=== PATIENT | female | born 1995 | race Caucasian/White ===

== ENCOUNTER 2016-09-03 13:36 | Outpatient (CLI) | payer OTHER ==
[2016-09-03 14:42] LABS: APPEARANCE,URINE CLOUDY; BILIRUBIN,URINE NEGATIVE (NEGATIVE); GLUCOSE, URINE NEGATIVE (NEGATIVE); KETONES,URINE NEGATIVE (NEGATIVE); LEUKOCYTE ESTERASE,URINE TRACE (NEGATIVE); NITRITE,URINE NEGATIVE (NEGATIVE); PROTEIN,URINE 30 mg/dL (NEGATIVE); UROBILINOGEN,URINE NEGATIVE mg/dL (<2.0)
[2016-09-03 14:47] LABS: URINE BARBITURATES SCREEN NEGATIVE; URINE METHADONE SCREEN NEGATIVE; URINE OPIATES LOW NEGATIVE; URINE PHENCYCLIDINE SCREEN NEGATIVE
== END 2016-09-03 15:47 | disposition home or self-care (01) ==
LOC: LC 13:36
PROVIDERS: ATTEND Student in an Organized Health Care Education/Training Program
PROC: 4A1HXCZ Monitoring of Products of Conception, Cardiac Rate, External Approach (ICD-10-PCS; principal; 2016-09-03)
DX: O99.612 Diseases of the digestive system complicating pregnancy, second trimester (principal); K52.9 Noninfective gastroenteritis and colitis, unspecified; O99.282 Endocrine, nutritional and metabolic diseases complicating pregnancy, second trimester; E86.0 Dehydration; Z3A.27 27 weeks gestation of pregnancy
CPT/HCPCS: 80307; 81001

== ENCOUNTER 2016-11-14 10:45 | Outpatient (CLI) | payer OTHER ==
[2016-11-14 11:43] LABS: ABSOLUTE LYMPHOCYTES (AUTO) 1.4 10^3/uL (0.5-4.7); ABSOLUTE MONOCYTES (AUTO) 0.5 10^3/uL (0.1-1.4); ABSOLUTE NEUT (AUTO) 5.9 10^3/uL (1.7-8.2); BASOPHILS % (AUTO) 0.3 % (0-2); EOSINOPHILS % (AUTO) 0.4 % (0-6); HEMATOCRIT 28.7 % (36.0-47.0); HEMOGLOBIN 9.9 g/dL (12.0-15.5); LYMPHOCYTES % (AUTO) 18.2 % (13-45); MEAN CORPUSCULAR HEMOGLOBIN 27.7 pg (27.0-33.4); MEAN CORPUSCULAR HGB CONC 34.5 g/dL (32.0-36.0); MEAN CORPUSCULAR VOLUME 80 fl (80-97); MONOCYTES % (AUTO) 6.9 % (3-13); RED BLOOD COUNT 3.59 10^6/uL (3.72-5.28); RED CELL DISTRIBUTION WIDTH 15.3 % (11.5-14.0); SEGMENTED NEUTROPHILS % (AUTO) 74.2 % (42-78); WHITE BLOOD COUNT 7.9 10^3/uL (4.0-10.5)
[2016-11-14 11:48] LABS: APPEARANCE,URINE CLOUDY; BILIRUBIN,URINE SMALL (NEGATIVE); GLUCOSE, URINE NEGATIVE (NEGATIVE); KETONES,URINE NEGATIVE (NEGATIVE); LEUKOCYTE ESTERASE,URINE SMALL (NEGATIVE); NITRITE,URINE NEGATIVE (NEGATIVE); PROTEIN,URINE 100 mg/dL (NEGATIVE); URINE SPECIFIC GRAVITY 1.035
[2016-11-14 12:06] LABS: URINE BARBITURATES SCREEN NEGATIVE; URINE METHADONE SCREEN NEGATIVE; URINE OPIATES LOW NEGATIVE; URINE PHENCYCLIDINE SCREEN NEGATIVE
[2016-11-14 12:08] LABS: ALANINE AMINOTRANSFERASE 23 U/L (9-52); ALBUMIN 3.4 g/dL (3.5-5.0); ALKALINE PHOSPHATASE 118 U/L (38-126); ANION GAP 11 (5-19); ASPARTATE AMINO TRANSFERASE 15 U/L (14-36); BILIRUBIN,DIRECT 0.3 mg/dL (0.0-0.4); BILIRUBIN,TOTAL 0.3 mg/dL (0.2-1.3); BLOOD UREA NITROGEN 8 mg/dL (7-20); CALCIUM 9.4 mg/dL (8.4-10.2); CARBON DIOXIDE 20 mmol/L (22-30); CHLORIDE 108 mmol/L (98-107); CREATININE RESULT 0.74 mg/dL (0.52-1.25); GLUCOSE 77 mg/dL (75-110); LDH 332 U/L (313-618); POTASSIUM 3.9 mmol/L (3.6-5.0); SODIUM 138.7 mmol/L (137-145); TOTAL PROTEIN 6.2 g/dL (6.3-8.2); URIC ACID 6.1 mg/dL (2.5-6.2)
== END 2016-11-14 12:35 | disposition home or self-care (01) ==
LOC: LC 10:45
PROVIDERS: ATTEND Specialist
PROC: 4A1HXCZ Monitoring of Products of Conception, Cardiac Rate, External Approach (ICD-10-PCS; principal; 2016-11-14)
DX: O16.3 Unspecified maternal hypertension, third trimester (principal); Z3A.38 38 weeks gestation of pregnancy
CPT/HCPCS: 36415; 80053; 80307; 81001; 83615; 84550; 85025

== ENCOUNTER 2016-11-15 16:02 | Outpatient (CLI) | payer OTHER ==
[2016-11-15 17:10] LABS: URINE PROTEIN 33.8 mg/dL (<12)
== END 2016-11-15 16:13 | disposition home or self-care (01) ==
LOC: LC 16:02
PROVIDERS: ATTEND Obstetrics & Gynecology
PROC: 4A1HXCZ Monitoring of Products of Conception, Cardiac Rate, External Approach (ICD-10-PCS; principal; 2016-11-15)
DX: O16.3 Unspecified maternal hypertension, third trimester (principal); Z3A.38 38 weeks gestation of pregnancy
CPT/HCPCS: 59025; 84156

== ENCOUNTER 2016-11-25 12:12 | Outpatient (CLI) | payer OTHER ==
[2016-11-25 13:06] LABS: URINE BARBITURATES SCREEN NEGATIVE; URINE METHADONE SCREEN NEGATIVE; URINE OPIATES LOW NEGATIVE; URINE PHENCYCLIDINE SCREEN NEGATIVE
[2016-11-25 13:09] LABS: URINE PROTEIN 140.1 mg/dL (<12)
[2016-11-25 13:13] LABS: APPEARANCE,URINE CLOUDY; BILIRUBIN,URINE NEGATIVE (NEGATIVE); GLUCOSE, URINE NEGATIVE (NEGATIVE); KETONES,URINE NEGATIVE (NEGATIVE); LEUKOCYTE ESTERASE,URINE NEGATIVE (NEGATIVE); NITRITE,URINE NEGATIVE (NEGATIVE); PROTEIN,URINE 100 mg/dL (NEGATIVE); URINE SPECIFIC GRAVITY 1.029; UROBILINOGEN,URINE NEGATIVE mg/dL (<2.0)
[2016-11-25 13:20] LABS: ABSOLUTE LYMPHOCYTES (AUTO) 1.6 10^3/uL (0.5-4.7); ABSOLUTE MONOCYTES (AUTO) 0.4 10^3/uL (0.1-1.4); ABSOLUTE NEUT (AUTO) 5.3 10^3/uL (1.7-8.2); BASOPHILS % (AUTO) 0.2 % (0-2); EOSINOPHILS % (AUTO) 0.4 % (0-6); HEMATOCRIT 28.2 % (36.0-47.0); HEMOGLOBIN 9.7 g/dL (12.0-15.5); HGB HCT DIFFERENCE 0.9; LYMPHOCYTES % (AUTO) 21.2 % (13-45); MEAN CORPUSCULAR HEMOGLOBIN 27.4 pg (27.0-33.4); MEAN CORPUSCULAR HGB CONC 34.3 g/dL (32.0-36.0); MEAN CORPUSCULAR VOLUME 80 fl (80-97); MONOCYTES % (AUTO) 5.8 % (3-13); RED BLOOD COUNT 3.52 10^6/uL (3.72-5.28); RED CELL DISTRIBUTION WIDTH 15.4 % (11.5-14.0); SEGMENTED NEUTROPHILS % (AUTO) 72.4 % (42-78); WHITE BLOOD COUNT 7.4 10^3/uL (4.0-10.5)
[2016-11-25 13:34] LABS: ALANINE AMINOTRANSFERASE 23 U/L (9-52); ALBUMIN 3.3 g/dL (3.5-5.0); ALKALINE PHOSPHATASE 111 U/L (38-126); ANION GAP 9 (5-19); ASPARTATE AMINO TRANSFERASE 15 U/L (14-36); BILIRUBIN,DIRECT 0.2 mg/dL (0.0-0.4); BILIRUBIN,TOTAL 0.3 mg/dL (0.2-1.3); BLOOD UREA NITROGEN 10 mg/dL (7-20); CALCIUM 9.2 mg/dL (8.4-10.2); CARBON DIOXIDE 20 mmol/L (22-30); CHLORIDE 107 mmol/L (98-107); CREATININE RESULT 0.77 mg/dL (0.52-1.25); GLUCOSE 108 mg/dL (75-110); LDH 332 U/L (313-618); POTASSIUM 4.1 mmol/L (3.6-5.0); SODIUM 135.6 mmol/L (137-145); TOTAL PROTEIN 5.9 g/dL (6.3-8.2); URIC ACID 6.5 mg/dL (2.5-6.2)
--- NOTE | 2016-11-25 13:55 | Non Stress Test Report ---
Non Stress Test Datetime Report Generated by CPN: 11/25/2016 13:55 DEMOGRAPHIC Test Number: 1 EGA NST: 39.4 EGA NST: 38.1 INDICATION Indication for Study: Ordered by Provider Indication for Study: Ordered by Provider Indication for Study (NST) Other: LC MONITORING Monitor Explained: Monitor Explained; Test Explained; Patient Verbalized Understanding Monitor Explained: Monitor Explained; Test Explained; Patient Verbalized Understanding Time on Monitor: 11/25/2016 12:33 Time on Monitor: 11/15/2016 15:44 Time off Monitor: 11/25/2016 13:16 Time off Monitor: 11/15/2016 16:09 NST Duration: 43 NST Duration: 25 NST INTERVENTIONS NST Interventions: PO Hydration NST Interventions: None Physician Notified NST: DrSuzanne Espinal Physician Notified NST: Dr. Espinal BABY A: [id number] BABY A Movement : Present Movement : Present Contraction Frequency : none Contraction Frequency : Occ FHR Baseline : 125 FHR Baseline : 135 Accelerations : 15X15 Accelerations : 15X15 Decelerations : None Decelerations : None Variability : Moderate 6-25bpm Variability : Moderate 6-25bpm NST Review: Meets Criteria for Reactive NST NST Review: Meets Criteria for Reactive NST NST Review and Verified By : Tania Del Rosario RN NST Review and Verified By : Jammie Yarbrough RN (Annotations: Data stored by N on behalf of user) NST Results: Reactive NST Results: Reactive NST REPORT Report Trigger: Send Report
== END 2016-11-25 13:50 | disposition home or self-care (01) ==
LOC: LC 12:12
PROVIDERS: ATTEND Obstetrics & Gynecology
PROC: 4A1HXCZ Monitoring of Products of Conception, Cardiac Rate, External Approach (ICD-10-PCS; principal; 2016-11-25)
DX: O14.93 Unspecified pre-eclampsia, third trimester (principal); Z3A.39 39 weeks gestation of pregnancy
CPT/HCPCS: 36415; 80053; 80307; 81001; 82570; 83615; 84156; 84550; 85025

== ENCOUNTER 2016-11-26 22:04 | Inpatient (IN) | payer OTHER ==
[2016-11-26] MEDS ORDERED: DINOPROSTONE 10 MG VAGINAL INSERT.SR PV PRN (22:18)
[2016-11-26] MEDS ORDERED: RINGERS SOLUTION,LACTATED 300 ML IV ONE (22:30)
[2016-11-26 22:50] LABS: ABSOLUTE LYMPHOCYTES (AUTO) 1.9 10^3/uL (0.5-4.7); ABSOLUTE MONOCYTES (AUTO) 0.7 10^3/uL (0.1-1.4); ABSOLUTE NEUT (AUTO) 7.4 10^3/uL (1.7-8.2); BASOPHILS % (AUTO) 0.4 % (0-2); EOSINOPHILS % (AUTO) 0.4 % (0-6); HEMATOCRIT 26.9 % (36.0-47.0); HEMOGLOBIN 9.3 g/dL (12.0-15.5); LYMPHOCYTES % (AUTO) 18.8 % (13-45); MEAN CORPUSCULAR HEMOGLOBIN 27.6 pg (27.0-33.4); MEAN CORPUSCULAR HGB CONC 34.5 g/dL (32.0-36.0); MEAN CORPUSCULAR VOLUME 80 fl (80-97); MONOCYTES % (AUTO) 6.5 % (3-13); RED BLOOD COUNT 3.37 10^6/uL (3.72-5.28); RED CELL DISTRIBUTION WIDTH 15.5 % (11.5-14.0); SEGMENTED NEUTROPHILS % (AUTO) 73.9 % (42-78); WHITE BLOOD COUNT 10.1 10^3/uL (4.0-10.5)
[2016-11-26 22:52] LABS: APPEARANCE,URINE CLOUDY; BILIRUBIN,URINE NEGATIVE (NEGATIVE); GLUCOSE, URINE NEGATIVE (NEGATIVE); KETONES,URINE TRACE mg/dL (NEGATIVE); LEUKOCYTE ESTERASE,URINE NEGATIVE (NEGATIVE); NITRITE,URINE NEGATIVE (NEGATIVE); PROTEIN,URINE >=500 mg/dL (NEGATIVE); URINE SPECIFIC GRAVITY 1.039
[2016-11-26] MEDS ORDERED: DINOPROSTONE 10 MG VAGINAL INSERT.SR ONE (23:02)
[2016-11-26] MEDS: RINGERS SOLUTION,LACTATED 1,000 ML IV PRN (23:07)
[2016-11-26 23:22] LABS: URINE BARBITURATES SCREEN NEGATIVE; URINE METHADONE SCREEN NEGATIVE; URINE OPIATES LOW NEGATIVE; URINE PHENCYCLIDINE SCREEN NEGATIVE
[2016-11-26] MEDS ORDERED: ZOLPIDEM TARTRATE 5 MG TABLET ONE (23:34)
[2016-11-26] MEDS ORDERED: ZOLPIDEM TARTRATE 5 MG TABLET PO ONE (23:45)
[2016-11-27] MEDS: RINGERS SOLUTION,LACTATED 1,000 ML IV PRN ×2 (05:36→22:25)
[2016-11-27] MEDS ORDERED: GLYBURIDE 2.5 MG TABLET PO ONE (06:00)
[2016-11-27] MEDS ORDERED: GLYBURIDE 5 MG TABLET ONE (06:20)
[2016-11-27] MEDS ORDERED: MISOPROSTOL 0.1 MG TABLET ONE (12:35)
[2016-11-27] MEDS ORDERED: MISOPROSTOL 0.1 MG TABLET PO ONE (12:43)
[2016-11-27] MEDS ORDERED: ONDANSETRON HCL INJ/PF 4 MG/2 ML SDV IV ONE (13:29)
[2016-11-27] MEDS ORDERED: ONDANSETRON HCL INJ/PF 4 MG/2 ML SDV ONE (13:34)
[2016-11-27] MEDS ORDERED: OXYTOCIN/NORMAL SALINE 20 UNIT/1,000 ML RTUINJ ONE ×2 (16:42→21:28)
--- NOTE | 2016-11-27 16:55 | L&D Progress Notes ---
PROGRESS NOTES Datetime Report Generated by CPN: 11/27/2016 16:55 PROGRESS NOTE Procedures: Sterile Vag Exam Plan: Continue Present Management; Induction Informed Consent Obtained: Vaginal Delivery Vital Signs : Reviewed; Within Normal Limits Vital Signs Comments: elevated bp Comment: coping well start pitocin VAGINAL EXAM Dilatation: 3 Effacement: 80 Station: -2 Contractions: irregular MEMBRANES Membranes: Intact FETUS A FHR - Baseline: 135 Monitoring: External US Variability: Moderate 6-25bpm Accelerations: 15X15 Decelerations: None FHR Category: Category I SIGNATURE SIGNATURE: [id number];[id number] SIGNATURE: [id number] Assignment: Wendi Stone MD Signature: with User ID: [email or web address] : with User ID: [email or web address]
[2016-11-27] MEDS ORDERED: BUPIVACAINE HCL 0.25 % INJ/PF (2.5 MG/1 ML) 30 ML VIAL ONE (17:49)
[2016-11-27] MEDS ORDERED: EPHEDRINE SULFATE INJ 50 MG/1 ML AMPULE ONE (17:49)
[2016-11-27] MEDS ORDERED: FENTANYL/BUPIVACAINE/NS/PF 200 MCG/100 ML RTUINJ EPI ONE (17:49)
[2016-11-27] MEDS: GLYBURIDE 2.5 MG TABLET PO SCH (19:41)
[2016-11-27] MEDS ORDERED: MAG HYDROX/AL HYDROX/SIMETH SUSP 30 ML UDCUP ONE (21:07)
[2016-11-27] MEDS ORDERED: LIDOCAINE 1% INJ-PF (10 MG/ML) 30 ML SDV ONE (21:28)
[2016-11-27] MEDS ORDERED: MISOPROSTOL 0.2 MG TABLET ONE (21:28)
--- NOTE | 2016-11-27 22:29 | L&D Progress Notes ---
PROGRESS NOTES Datetime Report Generated by CPN: 11/27/2016 22:29 PROGRESS NOTE Procedures: Artificial ROM; Sterile Vag Exam Plan: Continue Present Management Informed Consent Obtained: Vaginal Delivery Vital Signs : Reviewed Comment: Comfortable with epidural AROM, clear Continue pitocin VAGINAL EXAM Dilatation: 5 Effacement: 80 Station: -1 Contractions: 1-5 MEMBRANES Membranes: Intact Amniotic Fluid Color: Clear FETUS A FHR - Baseline: 120 Monitoring: External US Variability: Moderate 6-25bpm Accelerations: 15X15 Decelerations: None FETUS C SIGNATURE: [id number];[id number] Assignment: Wendi Stone MD Signature: with User ID: [email or web address] : with User ID: Rodake
[2016-11-27 22:41] LABS: ABSOLUTE EOSINOPHILS # (AUTO) 0.1 10^3/uL (0.0-0.6); ABSOLUTE LYMPHOCYTES (AUTO) 2.6 10^3/uL (0.5-4.7); ABSOLUTE MONOCYTES (AUTO) 0.8 10^3/uL (0.1-1.4); ABSOLUTE NEUT (AUTO) 8.8 10^3/uL (1.7-8.2); BASOPHILS % (AUTO) 0.3 % (0-2); EOSINOPHILS % (AUTO) 0.6 % (0-6); HEMATOCRIT 27.7 % (36.0-47.0); HEMOGLOBIN 9.2 g/dL (12.0-15.5); HGB HCT DIFFERENCE -0.1; LYMPHOCYTES % (AUTO) 21.3 % (13-45); MEAN CORPUSCULAR HEMOGLOBIN 26.6 pg (27.0-33.4); MEAN CORPUSCULAR HGB CONC 33.3 g/dL (32.0-36.0); MEAN CORPUSCULAR VOLUME 80 fl (80-97); MONOCYTES % (AUTO) 6.3 % (3-13); RED BLOOD COUNT 3.46 10^6/uL (3.72-5.28); RED CELL DISTRIBUTION WIDTH 15.4 % (11.5-14.0); SEGMENTED NEUTROPHILS % (AUTO) 71.5 % (42-78); WHITE BLOOD COUNT 12.3 10^3/uL (4.0-10.5)
[2016-11-27 22:47] LABS: URINE CREATININE 42.3 mg/dL (16-327)
[2016-11-27 22:57] LABS: ALANINE AMINOTRANSFERASE 21 U/L (9-52); ALBUMIN 3.1 g/dL (3.5-5.0); ALKALINE PHOSPHATASE 117 U/L (38-126); ANION GAP 9 (5-19); ASPARTATE AMINO TRANSFERASE 13 U/L (14-36); BILIRUBIN,DIRECT 0.3 mg/dL (0.0-0.4); BILIRUBIN,TOTAL 0.3 mg/dL (0.2-1.3); BLOOD UREA NITROGEN 10 mg/dL (7-20); CALCIUM 9.1 mg/dL (8.4-10.2); CARBON DIOXIDE 21 mmol/L (22-30); CHLORIDE 108 mmol/L (98-107); CREATININE RESULT 0.72 mg/dL (0.52-1.25); GLUCOSE 74 mg/dL (75-110); LDH 343 U/L (313-618); POTASSIUM 4.2 mmol/L (3.6-5.0); SODIUM 137.9 mmol/L (137-145); TOTAL PROTEIN 5.3 g/dL (6.3-8.2); URIC ACID 5.8 mg/dL (2.5-6.2)
--- NOTE | 2016-11-27 23:55 | L&D Progress Notes ---
PROGRESS NOTES Datetime Report Generated by CPN: 11/27/2016 23:55 PROGRESS NOTE Procedures: Intrauterine Pressure Catheter; Sterile Vag Exam Plan: Continue Present Management Vital Signs : Reviewed Comment: pt coping well, comfortable with epidural IUPC placed without difficulty Dr. Chase updated on pts SVE and fhts Overall moderate variability. Continue present mgmt VAGINAL EXAM Dilatation: 6 Effacement: 80 Station: 0 Contractions: 2-5 MEMBRANES Membranes: Ruptured Amniotic Fluid Color: Clear FETUS A FHR - Baseline: 120 Monitoring: External US Variability: Moderate 6-25bpm Accelerations: 15X15 FHR Category: Category II FHR Comments: iupc placed to better detemine variables vs. earlies vs. lates FETUS C SIGNATURE: [id number];[id number] Assignment: Wendi Stone MD Signature: with User ID: [email or web address] : with User ID: [email or web address]
[2016-11-28] MEDS: RINGERS SOLUTION,LACTATED 1,000 ML IV PRN ×2 (00:06→14:43)
[2016-11-28] MEDS ORDERED: CEFAZOLIN 2 GM/D5W RTU 2 GM/50 ML RTUPB IV ONE (02:00)
[2016-11-28] MEDS ORDERED: CITRIC ACID/SODIUM CITRATE ORAL SOLN 15 ML UDCUP ONE (02:00)
[2016-11-28] MEDS ORDERED: LIDOCAINE 2% INJ-PF (20 MG/ML) 10 ML AMPUL ONE (02:06)
[2016-11-28] MEDS ORDERED: OXYTOCIN 10 UNIT/ML VIAL ONE (02:21)
[2016-11-28] MEDS ORDERED: ONDANSETRON HCL INJ/PF 4 MG/2 ML SDV ONE (02:21)
[2016-11-28] MEDS ORDERED: OXYTOCIN/NORMAL SALINE 0 UNIT/0 ML RTUINJ ONE (02:21)
[2016-11-28] MEDS ORDERED: MIDAZOLAM 2 MG/2 ML INJ ONE ×2 (02:44→03:01)
[2016-11-28] MEDS ORDERED: KETAMINE HCL INJ 500 MG/10 ML VIAL ONE (02:55)
[2016-11-28] MEDS ORDERED: CHLOROPROCAINE HCL INJ/PF 3% (30 MG/1 ML) 20 ML VIAL ONE (02:56)
[2016-11-28] MEDS ORDERED: FENTANYL CITRATE INJ/PF 100 MCG/2 ML AMPUL ONE ×2 (03:01→03:38)
[2016-11-28] MEDS ORDERED: DIPH/PERTUSS(ACELL)/TETANUS VAC/PF 0.5 ML SYR (>=10YO) IM PRN (03:26)
[2016-11-28] MEDS ORDERED: MORPHINE SULFATE 10 MG/ML INJ IV PRN ×2 (03:26→03:50)
[2016-11-28] MEDS ORDERED: ACETAMINOPHEN 100 ML IV PRN (03:26)
[2016-11-28] MEDS ORDERED: OXYTOCIN/NORMAL SALINE 20 UNIT/1,000 ML RTUINJ IV PRN (03:26)
[2016-11-28] MEDS ORDERED: SIMETHICONE 80 MG TAB.CHEW PO PRN (03:26)
[2016-11-28] MEDS ORDERED: OXYCODONE-ACETAMINOPHEN 5-325 MG TABLET PO PRN (03:26)
[2016-11-28] MEDS ORDERED: MEASLES,MUMPS&RUBELLA VACC/PF 0.5 ML VIAL SUBCUT PRN (03:26)
[2016-11-28] MEDS ORDERED: ACETAMINOPHEN 100 ML IV ONE (03:35)
[2016-11-28] MEDS ORDERED: ONDANSETRON HCL INJ/PF 4 MG/2 ML SDV IV PRN (03:50)
[2016-11-28] MEDS ORDERED: DIPHENHYDRAMINE HCL 50 MG/ML VIAL IV PRN (03:50)
[2016-11-28] MEDS ORDERED: FENTANYL CITRATE INJ/PF 100 MCG/2 ML AMPUL IV PRN ×2 (03:50)
[2016-11-28] MEDS ORDERED: KETOROLAC TROMETHAMINE INJ/PF 30 MG/1 ML SDV IV ONE (04:08)
[2016-11-28] MEDS ORDERED: KETOROLAC TROMETHAMINE INJ/PF 30 MG/1 ML SDV ONE (04:19)
[2016-11-28] MEDS ORDERED: LABETALOL HCL INJ 20 MG/4 ML DISP.SYRIN IV ONE ×2 (04:24→04:28)
--- NOTE | 2016-11-28 05:12 | OPERATIVE REPORT E ---
Operative Report NAME: BEATA LUGO : 1995 AGE: 21Y DATE OF SURGERY: 11/28/2016 ROOM: LR200 PREOPERATIVE DIAGNOSIS: Intrauterine at 39+ weeks, A2 diabetic failed induction for nonreassuring heart tones. POSTOPERATIVE DIAGNOSIS: Intrauterine at 39+ weeks, A2 diabetic failed induction for nonreassuring heart tones. PROCEDURE: Low transverse hysterotomy section. SURGEON: NEL PAREDES M.D. ANESTHESIA: Dr. Liriano with an epidural. FINDINGS: A male in cephalic presentation with Apgars of 8 and 9. Tight nuchal with the umbilical cord around the baby's neck and shoulders. ESTIMATED BLOOD LOSS: 600 mL. SPECIMENS REMOVED: None. PROCEDURE IN DETAIL: Patient was taken to the operating room, prepared and draped in a normal sterile fashion in a supine position with a leftward tilt. A transverse skin incision was made with a scalpel and carried through to the underlying layer of fascia with the same scalpel. The fascia was excised in the midline and extended laterally with Mayos. The fascia was then dissected from the rectus muscle sharply with a Bovie, and the rectus muscle was divided. Peritoneal cavity was entered bluntly with surgeon finger fracture. The bladder blade was inserted, and the hysterotomy was nicked with a scalpel and extended laterally with surgeon finger fracture. The infant was then delivered atraumatically with the assist of a Kiwi vacuum x1 application with no pop-off. The nose and mouth were suctioned with a suction bulb, the cord was clamped and cut, and the infant was handed off to waiting pediatricians. The cord blood was collected, and the placenta was removed manually. The uterus was exteriorized and cleared of clot and debris. The 0 Monocryl was used in a running locked fashion to close the hysterotomy. A second layer was used in an imbricating fashion to ensure hemostasis. The uterus was returned to the abdomen, and the hysterotomy was reinspected and found to be hemostatic. The peritoneal cavity was cleared of clots and debris. The rectus muscle and peritoneum were reapproximated with a mattress stitch of 2-0 chromic. The fascia was closed with 0 Vicryl. The subcutaneous layer was closed with plain cat gut, and the skin was closed with 4-0 Vicryl. The patient tolerated procedure well. Sponge, lap, and needle counts were correct x2. The patient was taken to recovery in stable condition. DICTATING PHYSICIAN: NEL PAREDES M.D. [id number] PHY#: [id number] ID: [id number] JOB#: [id number] ACCT: [id number] cc:NEL PAREDES M.D. >
[2016-11-28] MEDS: FENTANYL CITRATE INJ/PF 100 MCG/2 ML AMPUL IV PRN ×2 (05:17→05:19)
--- NOTE | 2016-11-28 05:39 | Admission Physical ---
Datetime Report Generated by CPN: 11/28/2016 05:39 CURRENT ADMISSION Hx Assessment: The History has been Reviewed and is Current Chief Complaint: Scheduled Induction of Labor Indication for Induction- Other: GDMA2 Admit Plan: Initiate Labor Induction Protocol ALLERGIES Medication Allergies: No Medication Allergies: No Known Allergies (11/14/2016) Medication Allergies: No Known Allergies (09/03/2016) Latex: No Latex Allergies Food Allergies: N/A Environmental Allergies: N/A OBSTETRICAL HISTORY EDC: 11/28/2016 00:00 : 1 Para: 0 Term: 0 : 0 SAB: 0 IAB: 0 Ectopic: 0 Livin Cesareans: 0 VBACs: 0 Multiple Births: 0 Gestational Diabetes: Yes Rh Sensitization: No Incompetent Cervix: No HOA: No Infertility: No ART Treatment: No Uterine Anomaly: No IUGR: No Hx Previous C/S: No Macrosomia: No Hx Loss/Stillborn: No PIH: No Hx : No Placenta Previa/Abruption: No Depression/PP Depression: No PTL/PROM: No Post Hemorrhage: No Current Procedures: Ultrasound Obstetrical History Comments: G1 - current SEE RECORDS Alcohol: No Marijuana : No Cocaine: No Other Illicit Drugs: No Cigarettes: Never Smoker. [id number] MEDICAL HISTORY Diabetes: Yes Diabetes Type: Gestational Diabetes Blood Transfusion: No Pulmonary Disease (Asthma, TB): No Breast Disease: No Hypertension: No Schedule Maker Surgery: No Heart Disease: No Hosp/Surgery: No Autoimmune Disorder: No Anesthetic Complications: No Kidney Disease: No Abnormal Pap Smear: No Neuro/Epilepsy: No Psychiatric Disorders: No Other Medical Diseases: No Hepatitis/Liver Disease: No Significant Family History: No Varicosities/Phlebitis: No Trauma/Violence : No Thyroid Dysfunction: No INFECTIOUS HISTORY Gonorrhea: No Genital Herpes: No Chlamydia: No Tuberculosis: No Syphilis: No Hepatitis: No HIV/AIDS Exposure: No Rash or Viral Illness: No HPV: No PHYSICAL EXAM General: Normal HEENT: Normal Neurologic: Normal Thyroid: Normal Heart: Normal Lungs: Normal Breast: Normal Back: Normal Abdomen: Normal Genitourinary Exam: Normal Extremities: Normal DTRs: Normal Pelvic Type: Adequate Physical Exam Comments: efw 7 pounds 4 oz on recent sono VAGINAL EXAM Dilatation: 6 Dilatation: 5 Dilatation: 3 Effacement: 80 Effacement: 80 Effacement: 80 Station: 0 Station: -1 Station: -2 Contraction Comments: 2-5 Contraction Comments: 1-5 Contraction Comments: irregular MEMBRANES Membranes: Ruptured Membranes: Intact Membranes: Intact Amniotic Fluid Color: Clear Amniotic Fluid Color: Clear FETUS A EGA: 39.5 Monitoring: External US FHR Category: Category I Admit Comment: cervidil induction, follow fs. glyburide 2.5 mg po in am if eating breakfast PLANS FOR LABOR AND DELIVERY Labor and Delivery: None Pain Management: Epidural Feeding Preference: Breast Benefit of Breast Feed Discussed: Yes Circumcision: Yes INFORMED CONSENT Informed Consent Obtained: Vaginal Delivery Informed Consent Obtained: Vaginal Delivery Signature: with User ID: [email or web address]
[2016-11-28] MEDS ORDERED: KETOROLAC TROMETHAMINE INJ/PF 30 MG/1 ML SDV IV SCH (06:00)
[2016-11-28] MEDS: LABETALOL HCL 200 MG TABLET PO SCH ×2 (09:26→20:36)
[2016-11-28] MEDS: DOCUSATE SODIUM 100 MG CAPSULE PO SCH ×2 (09:29→18:50)
[2016-11-28] MEDS: KETOROLAC TROMETHAMINE INJ/PF 30 MG/1 ML SDV IV SCH ×2 (09:30→18:51)
[2016-11-28] MEDS: PRENATAL VITAMIN W-O CA NO5/FE FUMARATE/FA CAPSULE PO SCH (09:30)
[2016-11-28] MEDS: GLYBURIDE 2.5 MG TABLET PO SCH (09:54)
--- NOTE | 2016-11-28 10:05 | PDOC PROGRESS REPORT ---
Subjective-OB Subjective: Post Delivery Day: 21 year old. Denies any needs at this time Doing better, ready to start getting up, feels gas, plans to breast feed, pain under control, family at BS Physical Exam (OB) Vital Signs: Temp Pulse Resp BP Pulse Ox 98.7 F 101 H 21 H 136/83 H 97 11/28/16 07:43 11/28/16 07:43 11/28/16 07:43 11/28/16 07:43 11/28/16 07:43 Intake & Output 11/27/16 11/28/16 11/29/16 06:59 06:59 06:59 Weight 85.1 kg - PIH/Pre-Eclampsia DTR's: 2 + Clonus: Negative Headache: Absent Epigastric Pain: No Visual Changes: Yes - patient states that blurry vision when looking to the right side. - Abdomen Description: Tender, Soft Hernia Present: No Fundal Description: Firm, Midline Fundal Height: u/u - u/2 Objective-Diagnostic Laboratory: 11/27/16 22:28 11/27/16 22:28 11/27/16 11/27/16 22:28 22:28 WBC 12.3 H RBC 3.46 L Hgb 9.2 L Hct 27.7 L MCV 80 MCH 26.6 L MCHC 33.3 RDW 15.4 H Plt Count 212 Seg Neutrophils % 71.5 Lymphocytes % 21.3 Monocytes % 6.3 Eosinophils % 0.6 Basophils % 0.3 Absolute Neutrophils 8.8 H Absolute Lymphocytes 2.6 Absolute Monocytes 0.8 Absolute Eosinophils 0.1 Absolute Basophils 0.0 Sodium 137.9 Potassium 4.2 Chloride 108 H Carbon Dioxide 21 L Anion Gap 9 BUN 10 Creatinine 0.72 Est GFR ( Amer) > 60 Est GFR (Non-Af Amer) > 60 Glucose 74 L Uric Acid 5.8 Calcium 9.1 Total Bilirubin 0.3 AST 13 L ALT 21 Alkaline Phosphatase 117 Total Protein 5.3 L Albumin 3.1 L Assessment and Plan(PN) - Assessment and Plan (1) Gestational diabetes mellitus Qualifiers: Gestational diabetes mellitus control: diet-controlled Is this a current diagnosis for this admission?: Yes (2) Anemia Qualifiers: Anemia type: iron deficiency Is this a current diagnosis for this admission?: Yes (3) Delivery by emergency caesarean section Is this a current diagnosis for this admission?: Yes - Time Spent with Patient Time with patient: Less than 15 minutes Medications reviewed and adjusted accordingly: Yes - Disposition Anticipated Discharge: Home Within: within 48 hours
[2016-11-28] MEDS: PROMETHAZINE HCL INJ 25 MG/1 ML VIAL IV PRN ×2 (11:52→20:35)
[2016-11-28] MEDS: OXYCODONE-ACETAMINOPHEN 5-325 MG TABLET PO PRN (15:35)
[2016-11-28] MEDS ORDERED: GLYBURIDE 2.5 MG TABLET PO SCH (16:00)
--- NOTE | 2016-11-28 16:06 | PDOC PROGRESS REPORT ---
<[address] - Last Filed: 11/28/16 16:02> Subjective-OB Subjective: Post Delivery Day: 21 year old. Denies any needs at this time Physical Exam (OB) Vital Signs: Temp Pulse Resp BP Pulse Ox 98.7 F 100 16 146/83 H 97 11/28/16 11:42 11/28/16 11:42 11/28/16 11:42 11/28/16 11:42 11/28/16 11:42 Intake & Output 11/27/16 11/28/16 11/29/16 06:59 06:59 06:59 Intake Total 240 Output Total 150 Balance 90 Weight 85.1 kg - PIH/Pre-Eclampsia DTR's: 2 + Clonus: Negative Headache: Absent Epigastric Pain: No Visual Changes: Yes - patient states that blurry vision when looking to the right side. - Incision: Dressing, Well Approximated - Lochia Lochia Amount: Scant < 10 ml Lochia Color: Rubra/Red - Abdomen Description: Tender, Soft Hernia Present: No Fundal Description: Firm, Midline Fundal Height: u/u - u/2 Objective-Diagnostic Laboratory: 11/27/16 22:28 11/27/16 22:28 11/27/16 11/27/16 22:28 22:28 WBC 12.3 H RBC 3.46 L Hgb 9.2 L Hct 27.7 L MCV 80 MCH 26.6 L MCHC 33.3 RDW 15.4 H Plt Count 212 Seg Neutrophils % 71.5 Lymphocytes % 21.3 Monocytes % 6.3 Eosinophils % 0.6 Basophils % 0.3 Absolute Neutrophils 8.8 H Absolute Lymphocytes 2.6 Absolute Monocytes 0.8 Absolute Eosinophils 0.1 Absolute Basophils 0.0 Sodium 137.9 Potassium 4.2 Chloride 108 H Carbon Dioxide 21 L Anion Gap 9 BUN 10 Creatinine 0.72 Est GFR ( Amer) > 60 Est GFR (Non-Af Amer) > 60 Glucose 74 L Uric Acid 5.8 Calcium 9.1 Total Bilirubin 0.3 AST 13 L ALT 21 Alkaline Phosphatase 117 Total Protein 5.3 L Albumin 3.1 L Assessment and Plan(PN) - Assessment and Plan (1) Gestational diabetes mellitus QualifierTitle: Gestational diabetes mellitus control: diet-controlled Is this a current diagnosis for this admission?: Yes (2) Anemia QualifierTitle: Anemia type: iron deficiency Is this a current diagnosis for this admission?: Yes (3) Delivery by emergency caesarean section Is this a current diagnosis for this admission?: Yes - Time Spent with Patient Medications reviewed and adjusted accordingly: Yes - Disposition Anticipated Discharge: Home Within: Other - walked in to check patient and she was pale, SOB, chest pain and pulse ox 80, BP slightly elevated O2 via mask, stat xray, stat EKG and Dr. Love notified, diaphoretic Dr. Love notified Hospitalists to come check patient, urine output 300cc since 7 AM order for Lasix 40 IV per hospitalist <DARNELL LOVE - Last Filed: 11/28/16 16:43> Subjective-OB Subjective: Post Delivery Day: 21 year old. Denies any needs at this time Physical Exam (OB) Vital Signs: Temp Pulse Resp BP Pulse Ox 98.7 F 100 16 146/83 H 97 11/28/16 11:42 11/28/16 11:42 11/28/16 11:42 11/28/16 11:42 11/28/16 11:42 Intake & Output 11/27/16 11/28/16 11/29/16 06:59 06:59 06:59 Intake Total 240 Output Total 150 Balance 90 Weight 85.1 kg Objective-Diagnostic Laboratory: 11/27/16 22:28 11/27/16 22:28 11/27/16 11/27/16 22:28 22:28 WBC 12.3 H RBC 3.46 L Hgb 9.2 L Hct 27.7 L MCV 80 MCH 26.6 L MCHC 33.3 RDW 15.4 H Plt Count 212 Seg Neutrophils % 71.5 Lymphocytes % 21.3 Monocytes % 6.3 Eosinophils % 0.6 Basophils % 0.3 Absolute Neutrophils 8.8 H Absolute Lymphocytes 2.6 Absolute Monocytes 0.8 Absolute Eosinophils 0.1 Absolute Basophils 0.0 Sodium 137.9 Potassium 4.2 Chloride 108 H Carbon Dioxide 21 L Anion Gap 9 BUN 10 Creatinine 0.72 Est GFR ( Amer) > 60 Est GFR (Non-Af Amer) > 60 Glucose 74 L Uric Acid 5.8 Calcium 9.1 Total Bilirubin 0.3 AST 13 L ALT 21 Alkaline Phosphatase 117 Total Protein 5.3 L Albumin 3.1 L Assessment and Plan(PN) - Assessment and Plan (1) Hypoxia Is this a current diagnosis for this admission?: Yes Plan: Called hospitalist. Pt with SOB and Decreased O2, tachy, sats and CP. Less than 24 hrs postop from c/s. Concern for Pulmonary edema vs PE vs other cause. NO fever. Hospitalist requested urgently for help with management. Very much appreciate Dr. Oneal
[2016-11-28] MEDS ORDERED: FUROSEMIDE INJ/PF 40 MG/4 ML SDV IV ONE (16:15)
--- NOTE | 2016-11-28 16:37 | RADIOLOGY REPORT (SQ) ---
EXAM DESCRIPTION: CHEST SINGLE VIEW COMPLETED DATE/TIME: 11/28/2016 4:15 pm REASON FOR STUDY: SOB/chest pain COMPARISON: None. EXAM PARAMETERS: NUMBER OF VIEWS: One view. TECHNIQUE: Single frontal radiographic view of the chest acquired. RADIATION DOSE: NA LIMITATIONS: None. FINDINGS: LUNGS AND PLEURA: Patchy infiltrate is seen in the LLL. Lungs otherwise expanded and soraida r. MEDIASTINUM AND HILAR STRUCTURES: No masses. Contour normal. HEART AND VASCULAR STRUCTURES: Heart normal in size. Normal vasculature. BONES: No acute findings. HARDWARE: None in the chest. OTHER: No other significant finding. IMPRESSION: Patchy infiltrate LLL. TECHNICAL DOCUMENTATION: JOB ID: [id number]
[2016-11-28] MEDS ORDERED: GLUCAGON,HUMAN RECOMB 1 MG INJ IM PRN (17:00)
[2016-11-28] MEDS ORDERED: DEXTROSE 50%-WATER 25 GM/50 ML DISP.SYRIN IV PRN ×2 (17:00)
[2016-11-28] MEDS ORDERED: INSULIN LISPRO 100 UNIT/ML 3 ML VIAL SUBCUT PRN (17:00)
[2016-11-28] MEDS ORDERED: DEXTROSE 40% GEL 15 GM TUBE PO PRN ×2 (17:00)
[2016-11-28 17:26] LABS: ABSOLUTE LYMPHOCYTES (AUTO) 1.1 10^3/uL (0.5-4.7); ABSOLUTE MONOCYTES (AUTO) 0.5 10^3/uL (0.1-1.4); ABSOLUTE NEUT (AUTO) 11.9 10^3/uL (1.7-8.2); BASOPHILS % (AUTO) 0.3 % (0-2); EOSINOPHILS % (AUTO) 0.1 % (0-6); HEMATOCRIT 23.9 % (36.0-47.0); HEMOGLOBIN 8.3 g/dL (12.0-15.5); LYMPHOCYTES % (AUTO) 8.4 % (13-45); MEAN CORPUSCULAR HEMOGLOBIN 27.4 pg (27.0-33.4); MEAN CORPUSCULAR HGB CONC 34.7 g/dL (32.0-36.0); MEAN CORPUSCULAR VOLUME 79 fl (80-97); MONOCYTES % (AUTO) 3.9 % (3-13); RED BLOOD COUNT 3.02 10^6/uL (3.72-5.28); RED CELL DISTRIBUTION WIDTH 15.6 % (11.5-14.0); SEGMENTED NEUTROPHILS % (AUTO) 87.3 % (42-78); WHITE BLOOD COUNT 13.7 10^3/uL (4.0-10.5)
[2016-11-28] MEDS ORDERED: MAGNESIUM SULFATE 1 GM/D5W 100 ML IV SCH ×2 (17:30→19:00)
[2016-11-28] MEDS ORDERED: MAGNESIUM SULFATE 4 GM/D5W 100 ML IV ONE ×3 (17:45→18:30)
[2016-11-28 17:47] LABS: ALANINE AMINOTRANSFERASE 25 U/L (9-52); ALBUMIN 2.4 g/dL (3.5-5.0); ALKALINE PHOSPHATASE 89 U/L (38-126); ANION GAP 6 (5-19); ASPARTATE AMINO TRANSFERASE 20 U/L (14-36); BILIRUBIN,DIRECT 0.2 mg/dL (0.0-0.4); BILIRUBIN,TOTAL 0.3 mg/dL (0.2-1.3); BLOOD UREA NITROGEN 12 mg/dL (7-20); CALCIUM 8.4 mg/dL (8.4-10.2); CARBON DIOXIDE 22 mmol/L (22-30); CHLORIDE 107 mmol/L (98-107); CREATININE RESULT 0.88 mg/dL (0.52-1.25); GLUCOSE 81 mg/dL (75-110); LDH 665 U/L (313-618); POTASSIUM 4.3 mmol/L (3.6-5.0); SODIUM 134.6 mmol/L (137-145); TOTAL PROTEIN 4.4 g/dL (6.3-8.2); URIC ACID 5.9 mg/dL (2.5-6.2)
--- NOTE | 2016-11-28 18:05 | RADIOLOGY REPORT (SQ) ---
EXAM DESCRIPTION: CTA CHEST COMPLETED DATE/TIME: 11/28/2016 5:46 pm REASON FOR STUDY: hypoxia, possible pe COMPARISON: Chest radiograph from 11/28/2016. TECHNIQUE: CT scan of the chest performed using helical scanning technique with dynamic intravenous contrast injection. Images reviewed with lung, soft tissue and bone windows. Reconstructed coronal and sagittal MPR images reviewed. Additional 3 dimensional post-processing performed to develop Maximal Intensity Projection images (TN P). All images stored on PACS. All CT scanners at this facility use dose modulation, iterative reconstruction, and/or weight based d osing when appropriate to reduce radiation dose to as low as reasonably achievable (ALARA). [facility]: Dose Right [facility]: CareDose [facility]: Dose Right [facility]: Teradose 4D [facility]: [email or web address] CONTRAST TYPE AND DOSE: contrast/concentration: Isovue mg/ml; Total Contrast Delivered: 72.0 ml; To alonzo Saline Delivered: 40.0 ml Contrast bolus optimized for the pulmonary arteries. Not diagnostic for the aorta. RENAL FUNCTION: None required. The patient is less than 50 years old. RADIATION DOSE: Up-to-date CT equipment and radiation dose reduction techniques were employed. CTDIv ol: 9.9 - 19.6 mGy. DLP: 681 mGy-cm. . LIMITATIONS: None. FINDINGS: LUNGS AND PLEURA: Mild diffuse prominence of the pulmonary state interstitium most notably involving the upper lobes compatible with edema. Additional multifocal airspace disease most severe ly affecting the lingula left greater than right lower lobes. Small bilateral pleural effusions with subpulmonic effusion on the left. No pneumothorax. AORTA AND GREAT VESSELS: No aneurysm. Contrast bolus not optimized for the aorta. HEART: No pericardial effusion. No significant coronary artery calcifications. PULMONARY ARTERIES: No emboli visualized in the main pulmonary arteries or the segmental branches. HILAR AND MEDIASTINAL STRUCTURES: No identified masses or abnormal nodes. HARDWARE: None in the chest. UPPER ABDOMEN: Trace perihepatic ascites. No additional significant findings. THYROID AND OTHER SOFT TISSUES: No masses. No adenopathy. Mild body wall edema compatible with 3rd spacing. BONES: No acute or significant finding. 3D MIPS: Confirm above findings. OTHER: No other significant finding. IMPRESSION: NO PULMONARY EMBOLI. MULTIFOCAL AIRSPACE DISEASE DESCRIBED ABOVE PRESUMABLY REPRESENTING MULTIFOCAL PNEUMONIA. ADDITIO NAL NOTE IS MADE OF MILD INTERSTITIAL EDEMA, BILATERAL PLEURAL EFFUSIONS, TRACE PERIHEPATIC ASCITES, AND BODY WALL EDEMA COMPATIBLE WITH 3RD SPACING WHICH IS PRESUMABLY REACTIVE COMMENT: Quality ID # [id number]: Final reports with documentation of one or more dose reduction techniques (e.g., Automated exposure control, adjustment of the mA and/or kV according to patient size, use of iterative reconstruction technique) TECHNICAL DOCUMENTATION: JOB ID: [id number] [employer]- All Rights Reserved
[2016-11-28] MEDS: MAGNESIUM SULFATE 20 GM/500 ML IV PRN (18:42)
[2016-11-28] MEDS: ACETAMINOPHEN 325 MG TABLET PO PRN (18:50)
--- NOTE | 2016-11-28 19:05 | PDOC CONSULTATION ---
Consultation Consult Date: 11/28/16 Attending physician:: DARNELL LOVE Consult reason:: Hypoxia History of Present Illness Admission Date/PCP: 11/26/16 22:04 MYKEL MCMANUS DO Patient complains of: Shortness of breath History of Present Illness: BEATA LUGO is a 21 year old female who has gestational diabetes who had surgery today for failure to progress. Patient had a healthy baby boy. I was called by the plate drying machine tender because the patient had sudden onset of shortness of breath and was found to be hypoxic with oxygen saturations in the 70s on room air. The patient currently is on 10 L and is saturating in the low 90%. The patient denies having any chest pain. She has had some lower extremity edema. She has not had any fevers or chills. Her blood pressure is elevated at 148 systolic currently. This is the patient's first and no previous history of gestational diabetes. Past Medical History Cardiac Medical History: Reports: None Pulmonary Medical History: Reports: None EENT Medical History: Reports: None Neurological Medical History: Reports: None Endocrine Medical History: Reports: Gestational Diabetes Renal/ Medical History: Reports: None Malignancy Medical History: Reports: None GI Medical History: Reports: None Past Surgical History Past Surgical History: Reports: None Social History Information Source: Patient Lives with: Spouse/Significant other Smoking Status: Never Smoker Family History Parental Family History Reviewed: No Children Family History Reviewed: NA Sibling(s) Family History Reviewed.: NA Medication/Allergy Home Medications: Doxylamine Succinate/Vit B6 [Diclegis Dr 10-10 mg Tablet] 1 tab PO DAILY PRN 07/16 Vit/Iron Fum/Folic AC [ Tablet] 1 each PO DAILY 09/03/16 Glyburide 2.5 mg PO DAILY 11/14/16 Allergies/Adverse Reactions: No Known Allergies Allergy (Verified 11/14/16 11:37) Review of Systems Constitutional: ABSENT: chills, fever(s), headache(s) Cardiovascular: PRESENT: dyspnea on exertion, edema. ABSENT: chest pain, orthropnea, palpitations Respiratory: PRESENT: dyspnea. ABSENT: hemoptysis Gastrointestinal: ABSENT: abdominal pain, constipation, diarrhea, hematemesis, hematochezia, nausea, vomiting Physical Exam Vital Signs: Temp Pulse Resp BP Pulse Ox 98.7 F 100 16 146/83 H 97 11/28/16 11:42 11/28/16 11:42 11/28/16 11:42 11/28/16 11:42 11/28/16 11:42 Intake & Output 11/27/16 11/28/16 11/29/16 06:59 06:59 06:59 Intake Total 240 Output Total 150 Balance 90 Weight 85.1 kg General appearance: PRESENT: mild distress Head exam: PRESENT: atraumatic, normocephalic Ear exam: PRESENT: normal external ear exam Neck exam: ABSENT: JVD Respiratory exam: PRESENT: rales - Bibasilar. ABSENT: rhonchi, wheezes Cardiovascular exam: PRESENT: RRR. ABSENT: diastolic murmur, rubs, systolic murmur GI/Abdominal exam: PRESENT: normal bowel sounds, soft, tenderness - Tenderness over surgical site. ABSENT: distended, guarding, mass, organolmegaly, rebound Rectal exam: PRESENT: deferred Extremities exam: PRESENT: pedal edema. ABSENT: calf tenderness, clubbing Neurological exam: PRESENT: alert, awake, oriented to person, oriented to place , oriented to time, oriented to situation, CN II-XII grossly intact. ABSENT: motor sensory deficit Psychiatric exam: PRESENT: anxious Skin exam: PRESENT: dry, intact, warm. ABSENT: cyanosis, rash Results Laboratory Results: 11/27/16 22:28 11/27/16 22:28 11/27/16 11/27/16 22:28 22:28 WBC 12.3 H RBC 3.46 L Hgb 9.2 L Hct 27.7 L MCV 80 MCH 26.6 L MCHC 33.3 RDW 15.4 H Plt Count 212 Seg Neutrophils % 71.5 Lymphocytes % 21.3 Monocytes % 6.3 Eosinophils % 0.6 Basophils % 0.3 Absolute Neutrophils 8.8 H Absolute Lymphocytes 2.6 Absolute Monocytes 0.8 Absolute Eosinophils 0.1 Absolute Basophils 0.0 Sodium 137.9 Potassium 4.2 Chloride 108 H Carbon Dioxide 21 L Anion Gap 9 BUN 10 Creatinine 0.72 Est GFR ( Amer) > 60 Est GFR (Non-Af Amer) > 60 Glucose 74 L Uric Acid 5.8 Calcium 9.1 Total Bilirubin 0.3 AST 13 L ALT 21 Alkaline Phosphatase 117 Total Protein 5.3 L Albumin 3.1 L Assessment & Plan - Diagnosis (1) Hypoxia Is this a current diagnosis for this admission?: Yes Plan: Patient does have some rales on exam and the possibility this representing cardiac myopathy is possible. Will get a chest x-ray. We will go ahead and empirically give IV Lasix 40 mg. We will also check a BNP. Also possible that she may have suffered from a pulmonary embolism and will go ahead and get a CT angiogram of the lungs. Patient also has slightly elevated blood pressure and this has been addressed by the plate drying machine tender. (2) Anemia Qualifiers: Anemia type: iron deficiency Is this a current diagnosis for this admission?: Yes (3) Gestational diabetes mellitus Qualifiers: Gestational diabetes mellitus control: diet-controlled Is this a current diagnosis for this admission?: Yes
--- NOTE | 2016-11-29 00:19 | EKG REPORT ---
SEVERITY:- OTHERWISE NORMAL ECG - SINUS TACHYCARDIA : Confirmed by: Viraj Franks 29-Nov-2016 00:18:07
[2016-11-29] MEDS: KETOROLAC TROMETHAMINE INJ/PF 30 MG/1 ML SDV IV SCH ×3 (01:49→17:21)
[2016-11-29 04:15] LABS: HEMATOCRIT 20.7 % (36.0-47.0); HGB HCT DIFFERENCE 0.3; MEAN CORPUSCULAR HGB CONC 33.9 g/dL (32.0-36.0); MEAN CORPUSCULAR VOLUME 80 fl (80-97); RED CELL DISTRIBUTION WIDTH 15.9 % (11.5-14.0); WHITE BLOOD COUNT 11.4 10^3/uL (4.0-10.5)
[2016-11-29] MEDS ORDERED: DIPHENHYDRAMINE HCL 25 MG CAPSULE PO PRN (05:00)
[2016-11-29] MEDS ORDERED: FUROSEMIDE INJ/PF 20 MG/2 ML SDV IV PRN (05:00)
[2016-11-29 05:11] LABS: ALANINE AMINOTRANSFERASE 21 U/L (9-52); ALBUMIN 2.2 g/dL (3.5-5.0); ALKALINE PHOSPHATASE 82 U/L (38-126); ANION GAP 5 (5-19); ASPARTATE AMINO TRANSFERASE 22 U/L (14-36); BILIRUBIN,DIRECT 0.2 mg/dL (0.0-0.4); BILIRUBIN,TOTAL 0.2 mg/dL (0.2-1.3); BLOOD UREA NITROGEN 11 mg/dL (7-20); CALCIUM 7.6 mg/dL (8.4-10.2); CARBON DIOXIDE 23 mmol/L (22-30); CHLORIDE 105 mmol/L (98-107); GLUCOSE 87 mg/dL (75-110); POTASSIUM 4.1 mmol/L (3.6-5.0); SODIUM 133.1 mmol/L (137-145); TOTAL PROTEIN 4.3 g/dL (6.3-8.2)
[2016-11-29] MEDS: IBUPROFEN 800 MG TABLET PO SCH ×3 (05:13→17:29)
[2016-11-29] MEDS: MAGNESIUM SULFATE 20 GM/500 ML IV PRN (05:14)
[2016-11-29 05:25] LABS: MAGNESIUM 5.2 mg/dL (1.6-2.3)
[2016-11-29] MEDS ORDERED: FUROSEMIDE INJ/PF 20 MG/2 ML SDV IV ONE (09:46)
--- NOTE | 2016-11-29 09:52 | PDOC PROGRESS REPORT ---
Subjective Progress Note for:: 11/29/16 Subjective:: Patient reports that she is feeling much improved with less shortness of breath. Physical Exam Vital Signs: Temp Pulse Resp BP Pulse Ox 98.0 F 96 19 113/64 96 11/29/16 04:00 11/29/16 07:53 11/29/16 09:00 11/29/16 08:40 11/29/16 09:00 Intake & Output 11/28/16 11/29/16 11/30/16 06:59 06:59 06:59 Intake Total 988 Output Total 3645 400 Balance -2657 -400 Weight 90.1 kg General appearance: PRESENT: no acute distress Eye exam: PRESENT: conjunctiva pink. ABSENT: scleral icterus Mouth exam: PRESENT: moist, tongue midline Neck exam: ABSENT: JVD Respiratory exam: PRESENT: clear to auscultation elizabeth. ABSENT: rales, rhonchi, wheezes Cardiovascular exam: PRESENT: RRR. ABSENT: diastolic murmur, rubs, systolic murmur GI/Abdominal exam: PRESENT: normal bowel sounds, soft, tenderness - Tender over the lower abdomen from her .. ABSENT: distended, guarding, mass, organolmegaly, rebound Extremities exam: ABSENT: calf tenderness, clubbing Neurological exam: PRESENT: alert, awake, oriented to person, oriented to place , oriented to time, oriented to situation, CN II-XII grossly intact. ABSENT: motor sensory deficit Psychiatric exam: PRESENT: appropriate affect Skin exam: PRESENT: dry, intact, warm. ABSENT: cyanosis, rash Results Laboratory Results: 11/29/16 03:59 11/29/16 03:59 11/28/16 11/28/16 11/29/16 17:15 17:15 03:59 WBC 13.7 H 11.4 H RBC 3.02 L 2.60 L Hgb 8.3 L 7.0 L Hct 23.9 L 20.7 L MCV 79 L 80 MCH 27.4 27.0 MCHC 34.7 33.9 RDW 15.6 H 15.9 H Plt Count 177 145 L Seg Neutrophils % 87.3 H Lymphocytes % 8.4 L Monocytes % 3.9 Eosinophils % 0.1 Basophils % 0.3 Absolute Neutrophils 11.9 H Absolute Lymphocytes 1.1 Absolute Monocytes 0.5 Absolute Eosinophils 0.0 Absolute Basophils 0.0 Sodium 134.6 L Potassium 4.3 Chloride 107 Carbon Dioxide 22 Anion Gap 6 BUN 12 Creatinine 0.88 Est GFR ( Amer) > 60 Est GFR (Non-Af Amer) > 60 Glucose 81 Uric Acid 5.9 Calcium 8.4 Magnesium Total Bilirubin 0.3 AST 20 ALT 25 Alkaline Phosphatase 89 Total Protein 4.4 L Albumin 2.4 L 11/29/16 03:59 WBC RBC Hgb Hct MCV MCH MCHC RDW Plt Count Seg Neutrophils % Lymphocytes % Monocytes % Eosinophils % Basophils % Absolute Neutrophils Absolute Lymphocytes Absolute Monocytes Absolute Eosinophils Absolute Basophils Sodium 133.1 L Potassium 4.1 Chloride 105 Carbon Dioxide 23 Anion Gap 5 BUN 11 Creatinine 0.90 Est GFR ( Amer) > 60 Est GFR (Non-Af Amer) > 60 Glucose 87 Uric Acid Calcium 7.6 L Magnesium 5.2 H* Total Bilirubin 0.2 AST 22 ALT 21 Alkaline Phosphatase 82 Total Protein 4.3 L Albumin 2.2 L 11/28/16 17:15 NT-Pro-B Natriuret Pep 3470 H Impressions: Chest/Abdomen CTA 11/28/16 00:00 IMPRESSION: NO PULMONARY EMBOLI. MULTIFOCAL AIRSPACE DISEASE DESCRIBED ABOVE PRESUMABLY REPRESENTING MULTIFOCAL PNEUMONIA. ADDITIONAL NOTE IS MADE OF MILD INTERSTITIAL EDEMA, BILATERAL PLEURAL EFFUSIONS, TRACE PERIHEPATIC ASCITES, AND BODY WALL EDEMA COMPATIBLE WITH 3RD SPACING WHICH IS PRESUMABLY REACTIVE Chest X-Ray 11/28/16 15:56 IMPRESSION: Patchy infiltrate LLL. Assessment & Plan - Diagnosis (1) Hypoxia Is this a current diagnosis for this admission?: Yes Plan: Chest CTA was negative for any pulmonary embolism. She did have an elevated BNP consistent with a cardiomyopathy. This may be all related to eclampsia. Will give another dose of Lasix IV and continue with magnesium per UTILIZATION MANAGER's recommendations. Would recommend that we get an echocardiogram to evaluate her ejection fraction. She has improved well enough that we can move out of the intensive care unit back to labor and delivery. (2) Anemia Qualifiers: Anemia type: iron deficiency Is this a current diagnosis for this admission?: Yes (3) Gestational diabetes mellitus Qualifiers: Gestational diabetes mellitus control: diet-controlled Is this a current diagnosis for this admission?: Yes Plan: Continue with sliding scale insulin. Would hold the oral agents for now. - Time Time Spent with patient: 25-34 minutes - Inpatient Certification Medical Necessity: Need Close Monitoring Due to Risk of Patient Decompensation
[2016-11-29] MEDS: PRENATAL VITAMIN W-O CA NO5/FE FUMARATE/FA CAPSULE PO SCH (10:26)
[2016-11-29] MEDS: DOCUSATE SODIUM 100 MG CAPSULE PO SCH ×2 (10:26→17:29)
[2016-11-29] MEDS ORDERED: FUROSEMIDE INJ/PF 40 MG/4 ML SDV IV ONE (10:30)
[2016-11-29] MEDS: OXYCODONE-ACETAMINOPHEN 5-325 MG TABLET PO PRN (12:12)
[2016-11-29] MEDS: LABETALOL HCL 200 MG TABLET PO SCH ×2 (12:15→22:23)
[2016-11-29 14:38] LABS: HEMATOCRIT 21.8 % (36.0-47.0); HGB HCT DIFFERENCE 0.7; MEAN CORPUSCULAR HEMOGLOBIN 27.4 pg (27.0-33.4); MEAN CORPUSCULAR HGB CONC 34.4 g/dL (32.0-36.0); MEAN CORPUSCULAR VOLUME 80 fl (80-97); RED BLOOD COUNT 2.74 10^6/uL (3.72-5.28); RED CELL DISTRIBUTION WIDTH 15.8 % (11.5-14.0); WHITE BLOOD COUNT 11.3 10^3/uL (4.0-10.5)
[2016-11-29 14:42] LABS: HEMOGLOBIN 7.5 g/dL (12.0-15.5)
[2016-11-29] MEDS ORDERED: FUROSEMIDE 20 MG TABLET PO PRN (15:45)
[2016-11-29 20:33] LABS: HEMATOCRIT 24.1 % (36.0-47.0); HEMOGLOBIN 8.3 g/dL (12.0-15.5); HGB HCT DIFFERENCE 0.8; MEAN CORPUSCULAR HEMOGLOBIN 27.9 pg (27.0-33.4); MEAN CORPUSCULAR HGB CONC 34.4 g/dL (32.0-36.0); MEAN CORPUSCULAR VOLUME 81 fl (80-97); RED BLOOD COUNT 2.97 10^6/uL (3.72-5.28); RED CELL DISTRIBUTION WIDTH 15.7 % (11.5-14.0); WHITE BLOOD COUNT 12.8 10^3/uL (4.0-10.5)
[2016-11-30] MEDS: IBUPROFEN 800 MG TABLET PO SCH ×5 (00:14→23:37)
[2016-11-30] MEDS: KETOROLAC TROMETHAMINE INJ/PF 30 MG/1 ML SDV IV SCH (03:16)
[2016-11-30 05:31] LABS: ABSOLUTE EOSINOPHILS # (AUTO) 0.1 10^3/uL (0.0-0.6); ABSOLUTE LYMPHOCYTES (AUTO) 1.7 10^3/uL (0.5-4.7); ABSOLUTE MONOCYTES (AUTO) 0.5 10^3/uL (0.1-1.4); ABSOLUTE NEUT (AUTO) 8.1 10^3/uL (1.7-8.2); BASOPHILS % (AUTO) 0.3 % (0-2); EOSINOPHILS % (AUTO) 1.4 % (0-6); HEMATOCRIT 21.8 % (36.0-47.0); LYMPHOCYTES % (AUTO) 16.2 % (13-45); MEAN CORPUSCULAR HGB CONC 34.7 g/dL (32.0-36.0); MEAN CORPUSCULAR VOLUME 81 fl (80-97); RED CELL DISTRIBUTION WIDTH 15.7 % (11.5-14.0); SEGMENTED NEUTROPHILS % (AUTO) 77.1 % (42-78); WHITE BLOOD COUNT 10.5 10^3/uL (4.0-10.5)
[2016-11-30 05:40] LABS: HEMOGLOBIN 7.6 g/dL (12.0-15.5)
[2016-11-30 05:51] LABS: ANION GAP 6 (5-19); BLOOD UREA NITROGEN 14 mg/dL (7-20); CALCIUM 8.2 mg/dL (8.4-10.2); CARBON DIOXIDE 25 mmol/L (22-30); CHLORIDE 107 mmol/L (98-107); CREATININE RESULT 0.91 mg/dL (0.52-1.25); GLUCOSE 86 mg/dL (75-110); POTASSIUM 3.9 mmol/L (3.6-5.0); SODIUM 137.9 mmol/L (137-145)
--- NOTE | 2016-11-30 09:23 | PDOC PROGRESS REPORT ---
Subjective Progress Note for:: 11/30/16 Subjective:: Denies any complaints Physical Exam Vital Signs: Temp Pulse Resp BP Pulse Ox 97.8 F 82 16 126/81 H 96 11/30/16 08:00 11/30/16 08:00 11/30/16 08:00 11/30/16 08:00 11/30/16 08:00 Intake & Output 11/29/16 11/30/16 12/01/16 06:59 06:59 06:59 Intake Total 988 505 Output Total 3645 3800 Balance -2657 -3296 Weight 90.1 kg General appearance: PRESENT: no acute distress Eye exam: PRESENT: conjunctiva pink. ABSENT: scleral icterus Neck exam: ABSENT: JVD Respiratory exam: PRESENT: clear to auscultation elizabeth. ABSENT: rales, rhonchi, wheezes Cardiovascular exam: PRESENT: RRR. ABSENT: diastolic murmur, rubs, systolic murmur Results Laboratory Results: 11/30/16 05:12 11/30/16 05:12 11/26/16 11/29/16 11/29/16 22:30 14:26 20:27 WBC 11.3 H 12.8 H RBC 2.74 L 2.97 L Hgb 7.5 L 8.3 L Hct 21.8 L 24.1 L MCV 80 81 MCH 27.4 27.9 MCHC 34.4 34.4 RDW 15.8 H 15.7 H Plt Count 162 169 Seg Neutrophils % Lymphocytes % Monocytes % Eosinophils % Basophils % Absolute Neutrophils Absolute Lymphocytes Absolute Monocytes Absolute Eosinophils Absolute Basophils Sodium Potassium Chloride Carbon Dioxide Anion Gap BUN Creatinine Est GFR ( Amer) Est GFR (Non-Af Amer) Glucose Calcium Blood Type A POSITIVE Antibody Screen NEGATIVE 11/30/16 11/30/16 05:12 05:12 WBC 10.5 RBC 2.70 L Hgb 7.6 L Hct 21.8 L MCV 81 MCH 28.0 MCHC 34.7 RDW 15.7 H Plt Count 150 Seg Neutrophils % 77.1 Lymphocytes % 16.2 Monocytes % 5.0 Eosinophils % 1.4 Basophils % 0.3 Absolute Neutrophils 8.1 Absolute Lymphocytes 1.7 Absolute Monocytes 0.5 Absolute Eosinophils 0.1 Absolute Basophils 0.0 Sodium 137.9 Potassium 3.9 Chloride 107 Carbon Dioxide 25 Anion Gap 6 BUN 14 Creatinine 0.91 Est GFR ( Amer) > 60 Est GFR (Non-Af Amer) > 60 Glucose 86 Calcium 8.2 L Blood Type Antibody Screen 11/28/16 17:15 NT-Pro-B Natriuret Pep 3470 H Impressions: Chest/Abdomen CTA 11/28/16 00:00 IMPRESSION: NO PULMONARY EMBOLI. MULTIFOCAL AIRSPACE DISEASE DESCRIBED ABOVE PRESUMABLY REPRESENTING MULTIFOCAL PNEUMONIA. ADDITIONAL NOTE IS MADE OF MILD INTERSTITIAL EDEMA, BILATERAL PLEURAL EFFUSIONS, TRACE PERIHEPATIC ASCITES, AND BODY WALL EDEMA COMPATIBLE WITH 3RD SPACING WHICH IS PRESUMABLY REACTIVE Chest X-Ray 11/28/16 15:56 IMPRESSION: Patchy infiltrate LLL. Assessment & Plan - Diagnosis (1) Hypoxia Is this a current diagnosis for this admission?: Yes Plan: Patient doing well with no symptoms at this time. The hospital service will sign off. If you have any further concerns or questions please feel free to contact us. She is stable for discharge to home from a medicine service standpoint (2) Anemia Qualifiers: Anemia type: iron deficiency Is this a current diagnosis for this admission?: Yes (3) Gestational diabetes mellitus Qualifiers: Gestational diabetes mellitus control: diet-controlled Is this a current diagnosis for this admission?: Yes - Time Time Spent with patient: Less than 15 minutes - Plan Summary Plan Summary: We will sign off. Call if any further questions.
[2016-11-30] MEDS: PRENATAL VITAMIN W-O CA NO5/FE FUMARATE/FA CAPSULE PO SCH (09:42)
[2016-11-30] MEDS: DOCUSATE SODIUM 100 MG CAPSULE PO SCH ×2 (09:42→17:20)
[2016-11-30] MEDS: LABETALOL HCL 200 MG TABLET PO SCH ×2 (09:43→21:22)
--- NOTE | 2016-11-30 11:21 | PDOC PROGRESS REPORT ---
Subjective-OB Subjective: Post Delivery Day: 21 year old. Denies any needs at this time Doing well, hsb a BS, holding baby, feeling great, breast and bottle feeding, scant bleeding, breathing well Physical Exam (OB) Vital Signs: Temp Pulse Resp BP Pulse Ox 97.8 F 82 16 126/81 H 96 11/30/16 08:00 11/30/16 08:00 11/30/16 08:00 11/30/16 08:00 11/30/16 08:00 Intake & Output 11/29/16 11/30/16 12/01/16 06:59 06:59 06:59 Intake Total 988 505 Output Total 3645 4570 Balance -2546 -1730 Weight 90.1 kg - PIH/Pre-Eclampsia DTR's: 2 + Clonus: Negative Headache: Absent Epigastric Pain: No Visual Changes: No - Dressing Removed: Yes - dressing was open to air Incision: Well Approximated Closure Type: Sutures - Lochia Lochia Amount: Scant < 10 ml Lochia Color: Rubra/Red - Abdomen Description: Tender, Soft, Round Hernia Present: No Fundal Description: Firm, Midline Fundal Height: u/u - u/2 Objective-Diagnostic Laboratory: 11/30/16 05:12 11/30/16 05:12 11/26/16 11/29/16 11/29/16 22:30 14:26 20:27 WBC 11.3 H 12.8 H RBC 2.74 L 2.97 L Hgb 7.5 L 8.3 L Hct 21.8 L 24.1 L MCV 80 81 MCH 27.4 27.9 MCHC 34.4 34.4 RDW 15.8 H 15.7 H Plt Count 162 169 Seg Neutrophils % Lymphocytes % Monocytes % Eosinophils % Basophils % Absolute Neutrophils Absolute Lymphocytes Absolute Monocytes Absolute Eosinophils Absolute Basophils Sodium Potassium Chloride Carbon Dioxide Anion Gap BUN Creatinine Est GFR ( Amer) Est GFR (Non-Af Amer) Glucose Calcium Blood Type A POSITIVE Antibody Screen NEGATIVE 11/30/16 11/30/16 05:12 05:12 WBC 10.5 RBC 2.70 L Hgb 7.6 L Hct 21.8 L MCV 81 MCH 28.0 MCHC 34.7 RDW 15.7 H Plt Count 150 Seg Neutrophils % 77.1 Lymphocytes % 16.2 Monocytes % 5.0 Eosinophils % 1.4 Basophils % 0.3 Absolute Neutrophils 8.1 Absolute Lymphocytes 1.7 Absolute Monocytes 0.5 Absolute Eosinophils 0.1 Absolute Basophils 0.0 Sodium 137.9 Potassium 3.9 Chloride 107 Carbon Dioxide 25 Anion Gap 6 BUN 14 Creatinine 0.91 Est GFR ( Amer) > 60 Est GFR (Non-Af Amer) > 60 Glucose 86 Calcium 8.2 L Blood Type Antibody Screen 11/28/16 17:15 NT-Pro-B Natriuret Pep 3470 H Assessment and Plan(PN) - Assessment and Plan (1) Gestational diabetes mellitus Qualifiers: Gestational diabetes mellitus control: diet-controlled Is this a current diagnosis for this admission?: Yes (2) Anemia Qualifiers: Anemia type: iron deficiency Is this a current diagnosis for this admission?: Yes (3) Delivery by emergency caesarean section Is this a current diagnosis for this admission?: Yes - Time Spent with Patient Time with patient: Less than 15 minutes Medications reviewed and adjusted accordingly: Yes - Disposition Anticipated Discharge: Home Within: within 24 hours
[2016-12-01] MEDS: IBUPROFEN 800 MG TABLET PO SCH ×3 (05:07→17:20)
[2016-12-01] MEDS: PRENATAL VITAMIN W-O CA NO5/FE FUMARATE/FA CAPSULE PO SCH (09:25)
[2016-12-01] MEDS: LABETALOL HCL 200 MG TABLET PO SCH (09:25)
[2016-12-01] MEDS: DOCUSATE SODIUM 100 MG CAPSULE PO SCH ×2 (09:26→17:20)
[2016-12-01] MEDS: ACETAMINOPHEN 325 MG TABLET PO PRN (11:39)
[2016-12-01 15:28] VITALS: BP 139/83
--- NOTE | 2016-12-01 21:56 | XCELERA REPORT ---
[address] [address] Transthoracic Echocardiogram Report Name: BEATA LUGO Age: 21 yrs Gender: Female : 1995 Patient Status: Inpatient Patient Location: [address] [place] [address] Study Date: 12/01/2016 10:43 AM Height: 61 in Weight: 198 lb BSA: 1.9 m2 Procedure: A complete two-dimensional transthoracic echocardiogram was performed (2D, M-mode, spectral and color flow Doppler). The study was technically adequate with some images being suboptimal in quality. Reason For Study: post cardiomyopathy Ordering Physician: SAKSHI CORTEZ Performed By: Suzette Cruz Interpretation Summary LV EF is 50% Left ventricular systolic function is borderline reduced. There is normal left ventricular wall thickness. The left ventricle is grossly normal size. Doppler measurements suggest normal left ventricular diastolic function Wall motion cannot be accurately commented on, but no definite regional wall motion abnormalities noted. The right ventricular systolic function is normal. The left atrial size is normal. The right atrium is normal in size There is a trace to mild amount of mitral regurgitation There is no mitral valve stenosis. No aortic regurgitation is present. There is no aortic valve stenosis There is a trace to mild amount of tricuspid regurgitation Right ventricular systolic pressure is estimated to be elevated at 30- 40mmHg. There is mild pulmonary hypertension by echo The aortic root is not well visualized but is probably normal size. The inferior vena cava appeared normal and decreased < 50% with respiration (RAP 10-15 mmHg) There is no pericardial effusion. MMode/2D Measurements & Calculations RVDd: 2.6 cm LVIDd: 5.0 cm FS: 23.6 % Ao root diam: 2.3 cm IVSd: 0.81 cm LVIDs: 3.8 cm EDV(Teich): 119.6 ml LVPWd: 0.91 cm ESV(Teich): 63.4 ml Ao root area: 4.1 cm2 EF(Teich): 47.0 % LA dimension: 3.6 cm Doppler Measurements & Calculations MV E max : MV P1/2t max : Ao V2 max: LV V1 max P.0 cm/sec 119.2 cm/sec 158.1 cm/sec 4.8 mmHg MV A max : MV P1/2t: 65.9 msec Ao max PG: LV V1 max: 55.8 cm/sec 10.0 mmHg 110.1 cm/sec MV E/A: 2.1 MVA(P1/2t): 3.3 cm2 MV dec slope: 530.3 cm/sec2 PA V2 max: PI end-d : TR max : 97.2 cm/sec 164.2 cm/sec 292.0 cm/sec PA max PG: TR max P.8 mmHg 34.1 mmHg Left Ventricle The left ventricle is grossly normal size. There is normal left ventricular wall thickness. Left ventricular systolic function is borderline reduced. LV EF is 50%. Doppler measurements suggest normal left ventricular diastolic function. Wall motion cannot be accurately commented on, but no definite regional wall motion abnormalities noted. Right Ventricle The right ventricle is grossly normal size. There is normal right ventricular wall thickness. The right ventricular systolic function is normal. Atria The right atrium is normal in size. The left atrial size is normal. Interarterial septum not well visualized and not well dopplered. Cannot comment on ASD/PFO presence. Mitral Valve The mitral valve leaflets are sclerotic, but show no functional abnormalities. There is no mitral valve stenosis. There is a trace to mild amount of mitral regurgitation. Aortic Valve The aortic valve opens well. There is no aortic valve stenosis. No aortic regurgitation is present. Tricuspid Valve The tricuspid valve is not well visualized, but is grossly normal. There is no tricuspid stenosis. There is a trace to mild amount of tricuspid regurgitation. Right ventricular systolic pressure is estimated to be elevated at 30-40mmHg. There is mild pulmonary hypertension by echo. Pulmonic Valve The pulmonic valve is not well visualized. Great Vessels The aortic root is not well visualized but is probably normal size. The inferior vena cava appeared normal and decreased < 50% with respiration (RAP 10-15 mmHg). Effusions There is no pericardial effusion. : SAKSHI CORTEZ > Viraj Franks
--- NOTE | 2016-12-20 12:22 | DISCHARGE SUMMARY E ---
Discharge Summary NAME: BEATA LUGO : 1995 AGE: 21Y ADMITTED: 11/26/2016 DISCHARGED: 12/01/2016 REASON FOR ADMISSION: A 39-week intrauterine for induction for gestational diabetes. FINAL DIAGNOSIS: A 39-week intrauterine for induction for gestational diabetes. HISTORY AND PHYSICAL: See dictated history and physical from November 26, 2016 for full details. HOSPITAL COURSE: The patient is admitted to Labor and Delivery where induction begins. She undergoes several courses of cervical ripening, then followed by IV Pitocin. During her labor induction, the patient developed nonreassuring heart tones remote from delivery and therefore was counseled for the need for section. Patient was than taken back to the operating room for a primary low transverse section. See operative note for full details. She had an uncomplicated procedure. She was transferred to *------* for her postoperative care. On hospital day #1, patient is doing well. Her vital signs remained stable. She remained afebrile and has tolerated a regular diet and ambulating without difficulty. On the co founder and president hours of postoperative day #2, patient developed sudden onset of shortness of breath and hypoxia and hospitalist service is consulted by Dr. Ordonez. See consult note for full details. She undergoes extensive testing which include an EKG and CT examination of the chest, and also ultrasound of the heart, which reveals all normal findings. No evidence of pulmonary emboli or cardiac myopathy is found. Patient's hypoxia and shortness of breath resolve spontaneously and by hospital day #4, patient's vitals signs remained stable. She remains afebrile. She has tolerated a regular diet. She has good bowel and bladder function. She is ambulating in the hallways without difficulty and, again, her shortness of breath has completely resolved. She is meeting all goals and therefore was discharged home. DISCHARGE INSTRUCTIONS: Discharge patient home. Diet is regular. Level of activity is pelvic rest x6 weeks. No heavy lifting x2 weeks. No driving while taking her pain medication. SPECIAL INSTRUCTIONS: The patient was instructed to call MD if temperature greater than 100.5, heaving vaginal bleeding, or signs and symptoms of an infection and followup interval is one week with [facility]. MEDICATIONS ON DISCHARGE: Prevacid and Motrin. DICTATING PHYSICIAN: Nam Espinal DO [id number] PHY#: [id number] ID: [id number] JOB#: [id number] ACCT: [id number] BAEZ M.D. Nam Espinal D.O. >
== END 2016-12-01 17:40 | disposition home or self-care (01) | DRG 766 ==
LOC: LR 22:04 → 2S 11-28 05:37 → ICU 11-28 17:46 → 2S 11-29 11:05
PROVIDERS: ADMIT Obstetrics & Gynecology; ATTEND Obstetrics & Gynecology
PROC: 10H07YZ Insertion of Other Device into Products of Conception, Via Natural or Artificial Opening (ICD-10-PCS; 2016-11-27)
PROC: 4A1H7CZ Monitoring of Products of Conception, Cardiac Rate, Via Natural or Artificial Opening (ICD-10-PCS; 2016-11-27)
PROC: 10D00Z1 Extraction of Products of Conception, Low, Open Approach (ICD-10-PCS; principal; 2016-11-28)
DX: O61.0 Failed medical induction of labor (principal); O14.94 Unspecified pre-eclampsia, complicating childbirth; O62.2 Other uterine inertia; O76 Abnormality in fetal heart rate and rhythm complicating labor and delivery; O24.420 Gestational diabetes mellitus in childbirth, diet controlled; O99.02 Anemia complicating childbirth; D50.9 Iron deficiency anemia, unspecified; O69.1XX0 Labor and delivery complicated by cord around neck, with compression, not applicable or unspecified; Z3A.39 39 weeks gestation of pregnancy; Z37.0 Single live birth; R09.02 Hypoxemia; R06.02 Shortness of breath
CPT/HCPCS: 1961; 36415; 36430; 71010; 71275; 80048; 80053; 80307; 81005; 82570; 82962; 83615; 83735; 83880; 84156; 84550; 85025; 85027; 86592; 86850; 86900; 86901; 86920; 90715; 93005; 93010; 93306; 94799; J0131; J0690; J1885; J1940; J2250; J2270; J2400; J2405; J2550; J2590; J3010; J3475; J3490; J7120; P9016